=== PATIENT | male | born 1990 | race Two or more races ===

== ENCOUNTER 2024-09-05 15:45 | Emergency (ER) | payer BC, SELFPAY ==
[2024-09-05 16:14] VITALS: BP 154/90; PULSE 102; RESP 19; TEMP 37; O2SAT 97; BMI 37.0
--- NOTE | 2024-09-05 16:17 | XR_ITS ---
Examination: Tibia-Fibula, left , 2 views Technique: Tibia-fibula AP lateral 2 views Date and time of exam: September 05, 2024 1631 hrs. Indications: Chronic running pain with redness and tenderness in the back of the lower leg this month Findings: No fracture. No cortical bone destruction. No opaque foreign body Impression: No cortical bone destruction or opaque foreign body 4 mm plantar bony calcaneal spur
--- NOTE | 2024-09-05 16:17 | XR_ITS ---
Examination: Duplex scan of the lower extremity, unilateral left complete Date and time of exam: September 05, 2024 1451 hrs. Indications: Left lower leg swelling and pain beginning 9 days ago post running injury, injury to the calf with calf pain Technique: Duplex scan of the extremity veins using B-mode/grayscale imaging and Doppler spectral analysis and color flow Attention is directed to internal echogenicity, compression and augmentation involving these veins, color flow assessment, spectral analysis Findings: Major deep venous structures in the extremity demonstrate normal course and caliber. There is no evidence of deep vein thrombosis. Normal color flow and spectral analysis Impression: Negative for DVT.. Soft tissue mass superior calf measuring 5.3 x 2.1 x 3.6 cm most consistent with hematoma, MRI lower leg without contrast follow-up would best assess for plantaris tendon rupture, tear hemorrhage in the gastrocnemius muscle
--- NOTE | 2024-09-05 17:28 | EDNOTE_ITS ---
Lower Extremity Injury RME/HPI General Chief Complaint: Extremity Injury, Lower Stated Complaint: Left leg swelling. urgent care MD sent pt Time Seen by Provider: 09/05/24 15:56 Arrival date/time: 09/05/24 15:45 34-year-old male presents emergency department today stating that he has been exercising patient reports that he tried to attempt a mild run and when he did so he injured his left calf patient reports that he continued running and exercising hoping it would get better but reports that the swelling has not gotten better and his left leg. Patient ports injury happened 2 weeks ago Limitations: no limitations Related Data Previous Rx's ?Medication ?Instructions ?Recorded hydrocodone 5 mg-acetaminophen 325 1 tab PO BID PRN pain #10 tabs 09/05/24 mg tablet ibuprofen 800 mg tablet 800 mg PO TID PRN pain #30 tabs 09/05/24 Allergies Allergy/AdvReac Type Severity Reaction Status Date / Time NKA* Allergy Uncoded 06/06/23 18:50 Review of Systems Review of Systems Systems Reviewed: All systems reviewed, normal except as documented Constitutional Constitutional: Reports system reviewed and no additional complaints, except as documented, Denies fatigue, Denies fever(s) and Denies headache(s) Eyes Eyes: Reports system reviewed and no additional complaints, except as documented ENT Ears, Nose, Mouth, and Throat: Reports system reviewed and no additional complaints, except as documented, Denies dizziness and Denies headache(s) Cardiovascular Cardiovascular: Reports system reviewed and no additional complaints, except as documented, Denies chest pain, Denies dyspnea and Denies dyspnea on exertion Respiratory Respiratory: Reports system reviewed and no additional complaints, except as documented, Denies chest congestion, Denies cough, Denies dyspnea and Denies dyspnea on exertion Gastrointestinal Gastrointestinal: Reports system reviewed and no additional complaints, except as documented, Denies abdominal pain, Denies nausea and Denies vomiting Musculoskeletal Musculoskeletal: Reports system reviewed and no additional complaints, except as documented, Reports abnormal gait, Denies numbness, Reports stiffness, Denies tingling and Reports other (Left calf pain) Integumentary/Breasts Skin/Breast: Reports system reviewed and no additional complaints, except as documented, Denies rash and Denies wounds Neurologic Neurologic: Reports system reviewed and no additional complaints, except as documented, Reports abnormal gait, Denies dizziness, Denies headache(s), Denies numbness and Denies tingling Psychiatric Psychiatric: Reports system reviewed and no additional complaints, except as documented and Denies anxiety Endocrine Endocrine: Denies fatigue Past Medical History Past Medical History NEUROLOGIC: Negative Neurological Disorders CARDIAC: Negative Cardiac Disorders ED Exam General Limitations: Present no limitations General appearance: Present alert and in no apparent distress Head Head exam: Present atraumatic Eye Eye exam: Present normal appearance, PERRL and EOMI ENT ENT exam: Present normal exam, normal oropharynx and mucous membranes moist Neck Neck exam: Present normal inspection, full ROM and trachea midline Chest Chest inspection: Present normal inspection and symmetric chest wall rise Respiratory Respiratory exam: Present normal lung sounds bilaterally Cardiovascular Cardiovascular exam: Present regular rate, normal rhythm and normal heart sounds Abdominal Exam Abdominal exam: Present soft and normal bowel sounds Extremities Exam Extremities exam: Present full ROM, tenderness, normal capillary refill and calf tenderness; Absent joint swelling Back Exam Back exam: Present normal inspection and full ROM Neurological Exam Neurological exam: Present alert, oriented X3, CN II-XII intact, normal gait and reflexes normal; Absent motor sensory deficit Psychiatric Psychiatric exam: Present normal affect and normal mood Skin Skin exam: Present warm, dry, intact and normal color Course Quality Measures none Orders Category Date Time Status US venous doppler LE LT Stat Exams 09/05/24 16:17 Completed XR tibia fibula LT 2V Stat Exams 09/05/24 16:17 Completed Vital Signs Vital signs: Vital Signs Temperature 98.6 F 09/05/24 16:14 Pulse Rate 102 H 09/05/24 16:14 Respiratory Rate 19 09/05/24 16:14 Blood Pressure 154/90 H 09/05/24 16:14 Pulse Oximetry (%) 97 09/05/24 16:14 Oxygen Delivery Method Room Air 09/05/24 16:14 O2 saturation 97% room air within normal limits Extremity Injury, Lower MDM Narrative MDM Narrative:: 34-year-old male presents emergency department today stating that he has been exercising patient reports that he tried to attempt a mild run and when he did so he injured his left calf patient reports that he continued running and exercising hoping it would get better but reports that the swelling has not gotten better and his left leg. Patient ports injury happened 2 weeks ago On exam patient has tenderness and swelling to the left calf there is no evidence of compartment syndrome patient is good capillary refill I suspect patient has tear of his muscle and patient will require MRI Ultrasound of the lower extremity as well as x-ray obtained here in the emergency department I reviewed the patient ultrasound with the patient Patient given a copy of his ultrasound report patient struck to follow-up with primary care doctor in order to get outpatient MRI Patient data External records reviewed:: [facility] previous records Clinical information provided by:: patient Social determinants that could affect healthcare access:: none Patient has the following chronic illnesses:: None How is presenting disease/condition affected by chronic disease/condition?: no chronic disease Evaluation data The following diagnostics were reviewed and interpreted by me:: radiology exam(s) Lab and/or radiology exams considered but not ordered:: Radiology obtained Interpretation Summary: Reviewed by me Medications / Prescriptions Medications or Prescriptions considered but not ordered:: Given Medication administrations:: Given Consultations Consultation(s) initiated? (list below): No Diagnosis Extremity Injury, Lower Differential Diagnosis: other (DVT, muscle strain, muscle tear) Most likely diagnosis given after review of the tests above:: Muscle to Admission Indicated Admission indicated?: not indicated Admission Request Was there a request for admission?: No Disposition Plan Disposition Plan: Discharge Discharge Attestation Discharge Attestation: The patient and all family members were given an opportunity to ask questions and understood the discharge instructions. Discharge instructions specifically effects, indications for sooner follow up or return to the emergency department, and the expected course of current diagnosis. Patient condition: Stable Discharge Plan Plan Patient Disposition: HOME (Self Care) Disposition Comment: Stable Prescriptions/Referrals Prescriptions/Med Rec: New ibuprofen 800 mg tablet 800 mg PO TID PRN (Reason: pain) Qty: 30 0RF hydrocodone-acetaminophen 5-325 mg tablet 1 tab PO BID MDD 10 PRN (Reason: pain) Qty: 10 0RF Referrals: Inge Justice MD [Primary Care Provider] - 09/07/24 Problem List Clinical Impression: Pain of left calf Patient/Caregiver Discharge Instructions Education Materials: ED RICE Additional Instructions: Please follow up with your primary care doctor in the next 24-48hrs for any worsening symptoms return here immediately Print Language: Trinidadian Stand Alone Forms: Nataly Award Info., Patient Portal Info Letter Attestation Attestation The patient was seen by the midlevel practitioner. I, the co-signing physician, was present during the entire ER visit. While I did not physically examine the patient, I was available for consultation as needed.
[2024-09-05 17:29] VITALS: PULSE 98; RESP 18; TEMP 36.9; O2SAT 97
[2024-09-05 17:32] VITALS: BP 158/117
== END 2024-09-05 17:38 | disposition home or self-care (01) ==
PROVIDERS: Emergency Provider Emergency Medicine; PCP Obstetrics & Gynecology
DX: S89.92XA Unspecified injury of left lower leg, initial encounter (principal); X58.XXXA Exposure to other specified factors, initial encounter; Y93.02 Activity, running
CPT/HCPCS: 73590; 93971; 99284